=== PATIENT | female | born 1960 | race Caucasian/White ===

== ENCOUNTER 2022-04-01 07:59 | Emergency (ER) | payer MEDICARE ==
[~2022-04-01] VITALS: Ht 157.5 cm; Wt 71.7 kg
[~2022-04-01 07:59] MED LIST: METFORMIN HCL1000 MG PO; NYSTOP100000 UNI TOP
[2022-04-01 08:22] VITALS: BP 151/105
[2022-04-01 08:24] VITALS: BP 158/102
[2022-04-01 08:25] VITALS: BP 157/93
[2022-04-01] MEDS ORDERED: PENICILLIN V P500 MG PO ×2 (09:44→10:13)
[2022-04-01 10:04] VITALS: BP 116/82
== END 2022-04-01 10:08 | disposition home or self-care (01) ==
LOC: ED 07:59
DX: K08.89 Other specified disorders of teeth and supporting structures (principal); E11.9 Type 2 diabetes mellitus without complications; F17.210 Nicotine dependence, cigarettes, uncomplicated; Z79.84 Long term (current) use of oral hypoglycemic drugs